=== PATIENT | male | born 1965 | race Caucasian/White ===

== ENCOUNTER 2017-06-09 07:01 | Inpatient (IN) | payer BC, OTHER ==
[2017-06-08 13:37] VITALS: BMI 34.8
[2017-06-09] MEDS ORDERED: MIDAZOLAM HCL 2 MG/2 ML SINGLE DOSE VIAL ONE ×2 (08:01→09:39)
[2017-06-09] MEDS ORDERED: SUCCINYLCHOLINE CHLORIDE 200 MG/10 ML VIAL ONE (08:02)
[2017-06-09] MEDS ORDERED: ROCURONIUM BROMIDE 50 MG/5 ML VIAL ONE (08:02)
[2017-06-09] MEDS ORDERED: PROPOFOL 20 ML ONE ×18 (08:02→10:26)
--- NOTE | 2017-06-09 08:16 | PN ---
Progress Note (short form) - Note Progress Note: NEUROSURGERY Pre-op Pt examined at bedside Incision marked For C5-7 implant removal; ACDF C4-5 All questions answered
[2017-06-09] MEDS ORDERED: BACITRACIN 15 GM TUBE TOPICAL OINTMENT ONE (08:24)
[2017-06-09] MEDS ORDERED: ceFAZolin SODIUM 1 GM VIAL IVPB ONE (08:47)
[2017-06-09] MEDS ORDERED: ceFAZolin SODIUM 1 GM VIAL ONE ×2 (09:06→10:04)
[2017-06-09] MEDS ORDERED: DEXAMETHASONE SOD PHOSPHATE 4 MG/1 ML VIAL ONE ×2 (09:06→10:04)
[2017-06-09] MEDS ORDERED: BACITRACIN 50,000 UNITS VIAL NR ONE (09:19)
[2017-06-09] MEDS ORDERED: ONDANSETRON 4 MG/2 ML VIAL ONE (10:04)
[2017-06-09] MEDS ORDERED: LABETALOL HCL 5 MG/1 ML (100MG/20 ML VIAL) ONE (10:04)
[2017-06-09] MEDS ORDERED: LIDOCAINE HCL/PF 2% SDV 5ML VIAL ONE (10:04)
[2017-06-09] MEDS ORDERED: hydrALAZINE HCL 20 MG/ML VIAL ONE (10:25)
--- NOTE | 2017-06-09 11:32 | OP ---
DATE OF OPERATION: 06/09/2017 PREOPERATIVE DIAGNOSIS: C4-C5 radiculopathy. POSTOPERATIVE DIAGNOSIS: C4-C5 radiculopathy. PROCEDURE: Removal of anterior hardware at C5 through C7 and anterior cervical laminectomy and decompression and fusion of C4-C5. SURGICAL ATTENDING: Martell Romero MD CO-SURGEON: Brice Thurston MD CLOSURE: 3-0 Vicryl for platysma and 4-0 undyed Vicryl for skin. ESTIMATED BLOOD LOSS: Negligible. COMPLICATIONS: None. CONDITION: To recovery room in stable condition. DESCRIPTION OF OPERATIVE PROCEDURE: The patient is taken to the operating room on June 09, 2017. The patient was laid supine on the operative table with all prominences well-padded and neurophysiology monitoring wires were applied. General anesthesia with endotracheal of the patient was administered. The cervical region especially on the left side was prepped and draped in the usual sterile fashion. Utilizing the previous incision, which was on the left side, in horizontal fashion we approach the cervical spine. We extended that incision slightly centrally and laterally. Blunt dissection was carried down to the paravertebral muscles and platysma muscles and blunt dissection was carried down to the level of the anterior cervical vertebral bodies and exposing the previously applied anterior cervical plate and screws. At this time, Dr. Brice Thurston, neurosurgeon, performed the rest of the procedure. Please refer to his dictation for indications and operative description. After the fusion and removal of plate was performed by Dr. Thurston, the incision was irrigated and closed in layers with 3-0 for the platysma and 4-0 undyed Vicryl for the skin with Steri-Strips. Sterile dressing was applied. The patient was awakened from anesthesia and transferred to recovery room in stable condition with no complications. Estimated blood loss from my portion of the case was negligible. MARTELL ROMERO M.D. [id number]
[2017-06-09] MEDS ORDERED: BACITRACIN 15 GM TUBE TOPICAL OINTMENT TP ONE (11:52)
--- NOTE | 2017-06-09 12:03 | OP ---
Operative Note - Note: Operative Date: 06/09/17 Pre-Operative Diagnosis: C4-5 DDD, spondylosis, spondylolisthesis, stenosis; prior C5-7 fusion Operation: Jesus tse; Removal of anterior instrumentation C5-7 ( [employer]); anterior cervical discectomy C4-5; partial corpectomies C4 and C5; anterior C4-5 fusion with interobody implant; anterior instrumentation with Trinica Select 24 mm plate and 16 mm screws x4; microdissection Findings: extensive spondylosis and posterior osteophytes; sensitive B C5 roots; paraspinal fibrosis Implants: [employer] Trinica Select 24 mm plate and 16 mms screws (4); 7 mm Allen lordotic implant Surgeon: Brice Thurston (Lent co-surg) [employer] Counter Clerk: Giulia Reyes Anesthesiologist/GAS METER INSTALLER HELPER: Monique Sanchez MD Anesthesia: General Specimens Removed: C4-5 DDD; prior C5-7 plate and 5 screws Estimated Blood Loss (mls): 50 Operative Report Dictated: Yes
[2017-06-09] MEDS ORDERED: oxyCODONE HCL 5 MG TABLET PO PRN (12:09)
[2017-06-09] MEDS ORDERED: HYDROmorphone *PCA* 10MG/50ML DISP.SYRIN PCA ONE (12:13)
--- NOTE | 2017-06-09 12:14 | SURG ---
Surgery Plastic Surgery Coordinator Note Plastic Surgery Coordinator: Giulia Reyes PA-C Date of Service: 06/09/17 Diagnosis: C4-5 DDD, spondylosis, spondylolisthesis, stenosis; prior C5-7 fusion Procedure: Jesus tse; Removal of anterior instrumentation C5-7 ([id number]); anterior cervical discectomy C4-5; partial corpectomies C4 and C5; anterior C4-5 fusion with interobody implant; anterior instrumentation with Trinica Select 24 mm plate and 16 mm screws x4; microdissection I was present for the entirety of the operative procedure. For further detail, please refer to operative report. Visit type - Case Type Case Type: Scheduled Admission - Emergency Emergency Visit: No - New patient This patient is new to me today: Yes Date on this admission: 06/09/17
[2017-06-09] MEDS ORDERED: D5 IV SCH (12:15)
[2017-06-09] MEDS ORDERED: [UNRECOGNIZED DRUG - OTHER] IV SCH (12:15)
[2017-06-09] MEDS ORDERED: KCL IV SCH (12:15)
[2017-06-09] MEDS ORDERED: ONDANSETRON 4 MG/2 ML VIAL IVPUSH PRN ×2 (12:25→20:00)
[2017-06-09] MEDS ORDERED: DEXAMETHASONE SOD PHOSPHATE 4 MG/1 ML VIAL IVPUSH PRN (12:25)
[2017-06-09] MEDS ORDERED: PROMETHAZINE HCL 25 MG/1 ML VIAL IVPB PRN (12:25)
[2017-06-09] MEDS ORDERED: LACTATED RINGERS SOLUTION 1,000 ML IV SCH (12:30)
[2017-06-09] MEDS ORDERED: HYDROmorphone *PCA* 10MG/50ML DISP.SYRIN PCA SCH (12:30)
[2017-06-09] MEDS: diazePAM 5 MG TABLET PO SCH ×2 (14:00→20:21)
[2017-06-09] MEDS: DOCUSATE SODIUM 100 MG CAPSULE (FP) PO SCH ×2 (14:01→21:13)
[2017-06-09] MEDS: CEFAZOLIN 1 GM/D5W 1 GM/50 ML BAG IVPB SCH (16:59)
[2017-06-09] MEDS: oxyCODONE HCL 5 MG TABLET PO PRN (20:22)
[2017-06-10] MEDS: oxyCODONE HCL 5 MG TABLET PO PRN ×2 (00:12→03:59)
[2017-06-10] MEDS: CEFAZOLIN 1 GM/D5W 1 GM/50 ML BAG IVPB SCH (02:48)
[2017-06-10] MEDS: diazePAM 5 MG TABLET PO SCH (03:53)
[2017-06-10] MEDS: DOCUSATE SODIUM 100 MG CAPSULE (FP) PO SCH (06:42)
[2017-06-10] MEDS ORDERED: PT OWN MED DRAWER 7, Y5N ONE (09:57)
[2017-06-10] MEDS ORDERED: LOSARTAN POTASSIUM 100 MG TABLET PO SCH (10:00)
[2017-06-10] MEDS ORDERED: CHOLECALCIFEROL (VITAMIN D3) 1,000 UNIT TABLET (FP) PO SCH (10:00)
[2017-06-10] MEDS ORDERED: ATORVASTATIN CA 80 MG TABLET (FP) PO SCH (10:00)
--- NOTE | 2017-06-10 10:02 | PN ---
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 Will cont Oxycodone only;pt wishes to go home Original Note: Progress Note (short form) - Note Progress Note: NEUROSURGERY POD #1 Incisional pain Midl sore throat PE; Tmax 99, now 98, VSS CV- RRR; Lungs- CTA; Abd- benign; Ext- no sign of DVT Motor 4+-5/5 B UE/LE; Sensation- intact LT Incision C/D/I- dressing changed X-rays- good position of C4-5 implants, lordosis preserved All questions answered D/C and wound care instructions given
--- NOTE | 2017-06-10 10:02 | PN ---
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
--- NOTE | 2017-06-10 10:45 | PN ---
Progress Note (short form) - Note Progress Note: NEUROSURGERY Pt wants to maintain current oxycodone 30 mg dosage for 1 month before tapering himself off the following months He was recommended on multiple occasions to see a pain management physician and was informed that he will under no circumstance receive more than 2 months of postop pain med rx from [facility] D/C and f/u instructions given
[2017-06-10 11:08] VITALS: BP 131/71; PULSE 80; TEMP 98.2
--- NOTE | 2017-06-10 13:47 | PATH ---
Surgical Pathology Report Patient Name: USMAN FRAGA Med. Rec. #: [id number] /Age/Gender: 1965 (Age: 52) / M Account: [id number] Location: [facility] MED/SURG Taken: 06/09/2017 Received: 06/09/2017 Reported: 06/10/2017 Physicians: Brice Thurston M.D. Specimen(s) Received A: OLD INSTRUMENTATION C5-7 B: DISC C4-5 Clinical History Degenerative disease Final Diagnosis A. OLD INSTRUMENTATION, C5-7: REMOVAL: SURGICAL HARDWARE. MACROSCOPIC DIAGNOSIS. B. DISC C4-5, ANTERIOR CERVICAL DECOMPRESSION AND FUSION: FIBROCARTILAGINOUS TISSUE WITH DEGENERATIVE CHANGES CONSISTENT WITH INTRAVERTEBRAL DISC. Electronically Signed Krystin Rooney M.D. Gross Description A. Received fresh labeled "old instrumentation C5-7," is a 4.1 x 1.4 x 0.2 cm metallic plate. Also received within the same container are 5 bagley metallic screws averaging 1.5 cm in length. No soft tissue is present. No sections are submitted, gross only. B. Received in formalin labeled "disc C4-5," is a 3.4 x 2.2 x 0.3 cm aggregate of kramer fragments of fibrocartilaginous tissue. A senior patient account representative portion is submitted in one cassette. 06/09/201706/09/2017
--- NOTE | 2017-06-14 09:12 | OP ---
DATE OF OPERATION: 06/09/2017 PREOPERATIVE DIAGNOSIS: 1. C4-5 spondylolisthesis with spondylosis and spinal stenosis. 2. Prior C5-C7 fusion. POSTOPERATIVE DIAGNOSIS: 1. C4-5 spondylolisthesis with spondylosis and spinal stenosis. 2. Prior C5-C7 fusion. ATTENDING SURGEON: Brice Thurston M.D. CO-SURGEON: Martell Romero M.D. FITTER TYPE BAR AND SEGMENT: MAHIN Lipscomb, MAHIN Castaneda ANESTHESIA: General endotracheal anesthesia. ANESTHESIOLOGIST: Monique Sanchez M.D. ESTIMATED BLOOD LOSS: 50 mL PROCEDURE: 1. Preoperative placement and postoperative removal of cranial traction tongs for intraoperative traction (03490). 2. Removal of anterior cervical instrumentation, C5-C7 (78294). 3. Partial corpectomy, C4-C5, after diskectomy (spinal cord and cervical root decompression) (41332-14, 92398). 4. Microsurgical dissection with operative microscope, microsurgical technique (15949). 5. Anterior cervical fusion C4-5 (77586). 6. Utilization of intervertebral 7-mm bony prosthetic device from [employer] (56854). 7. Anterior cervical instrumentation with 24-mm [employer] Trinica Select titanium plate and 16-mm variable ankle titanium screws at C4 and C5 (63706). 8. Preoperative placement and postoperative removal of cranial traction tongs for intraoperative traction (00693). FINDINGS: 1. Solidly healed fusion at C5-6 and C6-7. 2. C4-5 instability with spondylolisthesis. 3. Sensitive cervical roots, bilateral C5. 4. Posterior cervical osteophytes with right-sided spinal cord impingement. INDICATION: The patient is a 52-year-old male who had previously undergone anterior cervical decompression, fusion and instrumentation 9 years ago. He comes in complaining of worsening pain. MRI demonstrated right-sided C4-5 osteophytes resulting in thecal sac and proximal nerve root impingement. He also had spondylolisthesis at C4-5. Because of intractable symptoms and failure of conservative treatment, he has now consented for anterior cervical decompression and fusion with instrumentation at C4-5 after removal of the prior C5-C7 implants. The risks of procedure including but not limited to bleeding, infection, dural tear with CSF leak, neurologic injury, increased thromboembolic risks, hoarseness, swallowing difficulties, nonunion or fusion, adjacent level disease, and all the risks of general anesthesia. The patient understands the indications for the procedure, the procedure in detail, the risks and benefits as well as alternatives for treatment of cervical spine condition and wishes to proceed. Intraoperative SSEP, MEP and EMG signals will be monitored, including recurrent laryngeal nerve monitoring. No guarantee was given for a favorable outcome. PROCEDURE IN DETAILS: The patient was taken to the operating room and placed in supine position. His head was secured in a Monahan horseshoe. After general anesthesia was induced and appropriate lines were placed, the shoulders were taped down at his sides. The anterior cervical region was cleaned with alcohol and prepped with Betadine, and a localization was obtained. The approach and the closure were dictated by Dr. Martell Romero under a separate heading. After the approach was made by Dr. Romero, the prevertebral fascia was dissected free with a combination of blunt and sharp dissection. A moderate degree of paraspinal fibrosis was noted. The Shrestha elevator was used to skeletonize the prior anterior cervical plating system spanning from C5 to C7. The longus coli muscle was reflected laterally. A self -retaining retractor system was inserted at this time. The screws were backed out at C5 and C7 bilaterally as was a single screw at C6. The plate was then mobilized with curette and removed. All parts of the plating system were retrieved. The operative field was inspected and there was no remaining metallic implant material. The fusion appeared to be intact at C5-6 and C6-7 and was solid. Attention then turned to the C4-5 interspace after further cephalad dissection was carried out with a periosteal elevator, bipolar electrocautery and monopolar electrocautery. The self- retaining retractor was repositioned. A C spine x-ray was obtained, demonstrating the needle to be at the C4-5 disk space. Anterior osteophytes were resected with a Lexell rongeur and air drill. Disk space was incised with a number 15 blade and at this point, the traction weight was increased to 5 pounds. The cranial retraction tongs were placed prior to the patient being prepped and draped with bacitracin ointment. The disk material was removed with a combination of pituitary rongeur, Kerrison rongeur, as well as angled and straight curettes. This portion of the procedure was performed with the use of the operating microscope for both illumination and magnification. Microsurgical techniques were utilized. The partial corpectomy at the bottom of the vertebral body of C4 and top of the vertebral body of C5 was carried out with a combination of angled curette as well as a Kerrison rongeur. The posterior longitudinal ligament was dissected free and resected with the Kerrison rongeur. The Kerrison rongeur was used to perform bilateral foraminotomies at C4-5. The cervical roots were sensitive to nearby bipolar electrocautery stimulation which was used for hemostasis. Bilateral foraminotomy was completed, and the posterior osteophyte was burred down first and then resected with an angled curette and the Kerrison rongeur. Hemostasis was obtained with bipolar electrocautery and powder Gelfoam. The wounds were copiously irrigated. The disk space was sized to be about 7 mm in height and 17 to 18 mm in AP diameter. A 7-mm lordotic device from [employer] was inserted and countersunk by about 1 to 2 mm. A 24-mm Trinica Select titanium plate from [employer] was first secured with a fixation pin. New screw holes were made at C4 and C5 bilaterally to gain good bone purchase at both of these levels. This was done with a handheld guide and a handheld drill. Then, 16-mm variable angle screws were used bilaterally at C4-5. After final tightening, another lateral cervical spine x-ray was obtained demonstrating excellent position of the implants. The locking mechanism was then engaged. At this point, the wound was irrigated with a copious amount of antibiotics and irrigation. The cervical fusion and anterior cervical fusion was carried out with the use of an interbody implant and this fusion was performed for the C4-5 level. A layer of Surgicel was layered on the new plating system, the prior C5-C7 exposure, and closure was dictated by Dr Romero under a separate heading. The patient tolerated the procedure well. The cranial traction tongs were removed prior to patient's being awakened in the operating room. SSEP, MEP and EMG signals remained stable throughout. The patient moved his upper and lower extremities in the recovery room. He received one dose of 2 g of Ancef and 10 mg of Decadron prior to the incision. The OR timeout procedure was followed. The intraoperative findings were discussed with the patient as well as with his separately. BRICE THURSTON M.D. BRETT/[id number] cc: Dr Martell QUARLES
== END 2017-06-10 11:08 | disposition home or self-care (01) | DRG 473 ==
LOC: JSAMEDAYSX 07:01 → EDSTATUS 08:00 → J8W 14:45
PROVIDERS: ADMIT Orthopaedic Surgery; ATTEND Orthopaedic Surgery
PROC: 0RG10J0 Fusion of Cervical Vertebral Joint with Synthetic Substitute, Anterior Approach, Anterior Column, Open Approach (ICD-10-PCS; 2017-06-09)
PROC: 0RP30JZ Removal of Synthetic Substitute from Cervical Vertebral Disc, Open Approach (ICD-10-PCS; 2017-06-09)
PROC: 00NW0ZZ Release Cervical Spinal Cord, Open Approach (ICD-10-PCS; principal; 2017-06-09 08:00)
DX: M47.892 Other spondylosis, cervical region (principal); M54.12 Radiculopathy, cervical region
CPT/HCPCS: 72050-TC; 86850; 86900; 86901; 88300-TC; 88304-TC; 94010; 94760